=== PATIENT | male | born 1930 | race Caucasian/White ===

== ENCOUNTER 2017-12-23 06:49 | Day surgery (SDC) | payer MEDICARE ==
[~2017-12-23] VITALS: Ht 170.2 cm; Wt 84.3 kg
[2017-12-23] VITALS (14 sets, daily range): BP systolic 104–140; BP diastolic 51–85
[~2017-12-23 06:49] MED LIST: ADV50250 IH; CITA-278 PO; CRANBERRY PO; HYT5T PO; NORCO10T PO; OMEP-84 PO; ONDA8TAB6 PO; OS CAL PO; VITAMIN D 3 PO
[2017-12-23] MEDS ORDERED: nitroGLYCERIN 0.4mg SUBLingual tab SL PRN (07:20)
[2017-12-23] MEDS ORDERED: diphenhydrAMINE 25mg capsule PO PRN (07:20)
[2017-12-23] MEDS ORDERED: normal saline 1000ml 1,000 ML IV SCH ×2 (07:20→10:20)
[2017-12-23] MEDS ORDERED: LORazepam 0.5 MG tablet PO PRN (07:20)
[2017-12-23] MEDS ORDERED: METO-539 PO (07:38)
[2017-12-23] MEDS ORDERED: CLON0.5T23 PO (07:38)
[2017-12-23] MEDS ORDERED: FLO0.4C PO (07:38)
[2017-12-23] MEDS ORDERED: NABU500T2 PO (07:38)
[2017-12-23] MEDS ORDERED: TIOT4MIS3 IH (07:43)
[2017-12-23] MEDS ORDERED: MULT-1085 PO (07:43)
[2017-12-23] MEDS ORDERED: LACT1CAP73 PO (07:43)
[2017-12-23] MEDS ORDERED: TYL650S PO (07:43)
[2017-12-23 08:23] LABS: BASOPHILS % (AUTO) 0.6 % (0-1); EOSINOPHILS # (AUTO) 0.3 X10'3 (0-0.9); EOSINOPHILS % (AUTO) 3.8 % (0-6); LYMPHOCYTES # (AUTO) 1.9 X10'3 (1.1-4.8); LYMPHOCYTES % (AUTO) 24.9 % (21-51); MEAN CORPUSCULAR HEMOGLOBIN 30.6 PG (27.0-31.0); MEAN CORPUSCULAR VOLUME 92.5 FL (78-98); MEAN PLATELET VOLUME 8.8 FL (7.4-10.4); MONOCYTES # (AUTO) 0.6 X10'3 (0-0.9); MONOCYTES % (AUTO) 7.8 % (2-12); NEUTROPHILS # (AUTO) 4.7 X10'3 (1.8-7.7); NEUTROPHILS % (AUTO) 62.9 % (42-75); PRE OP HEMATOCRIT 43.1 % (42.0-52.0); PRE OP HEMOGLOBIN 14.2 g/dL (14.0-17.9); PRE OP PLATELET COUNT 221 X10'3 (140-440); RED BLOOD COUNT 4.66 X10'6 (4.70-6.10); RED CELL DISTRIBUTION WIDTH 14.5 % (11.5-14.5)
[2017-12-23 08:27] LABS: PARTIAL THROMBOPLASTIN TIME 26 SECONDS (22-32); PROTHROMBIN TIME 10.3 SECONDS (9.0-12.0)
[2017-12-23 08:36] LABS: ALBUMIN 3.4 G/DL (3.4-5.0); ANION GAP 8 (8-16); BLOOD UREA NITROGEN 15 MG/DL (7-18); BUN/CREATININE RATIO 13.9 (5.4-32.0); CALCIUM 9.1 MG/DL (8.5-10.1); CHLORIDE 106 MMOL/L (99-107); CREATININE 1.08 MG/DL (0.60-1.10); GLUCOSE 118 MG/DL (70-104); POTASSIUM 4.6 MMOL/L (3.5-5.1); SODIUM 142 MMOL/L (135-145); eGFR 65 ML/MIN
[2017-12-23] MEDS ORDERED: LIDOcaine 1% (10mg/ml)w/preservative injection 20ml MDV ONE (08:52)
[2017-12-23] MEDS ORDERED: iohexol 350MG/ML 100ml bottle IV ONE (08:52)
[2017-12-23] MEDS ORDERED: iohexol 350 MG/ML 50ML vial IV ONE ×2 (08:52→09:36)
[2017-12-23] MEDS ORDERED: fentaNYL/PF 50MCG/1 ML 2ML syringe ONE (08:52)
[2017-12-23] MEDS ORDERED: midazolam 2 mg/2 ml injection ONE (08:52)
[2017-12-23] MEDS ORDERED: HYDROcodone/acetaminophen 5mg/325mg tablet PO PRN (10:20)
[2017-12-23] MEDS ORDERED: OXAZEpam 15mg capsule PO PRN (10:20)
[2017-12-23] MEDS ORDERED: ondansetron/PF 4mg/2ml inj IV PRN (10:20)
[2017-12-23] MEDS ORDERED: HYDROcodone/acetaminophen 10/325mg tab PO PRN (10:20)
[2017-12-23] MEDS ORDERED: proCHLORperazine 10 MG/2 ml inj IV PRN (10:20)
== END 2017-12-23 16:55 | disposition home or self-care (01) ==
LOC: SSTAY O 06:49
PROVIDERS: ATTEND Internal Medicine Cardiovascular Disease
DX: I25.10 Atherosclerotic heart disease of native coronary artery without angina pectoris (principal); I10 Essential (primary) hypertension; E78.5 Hyperlipidemia, unspecified; I73.9 Peripheral vascular disease, unspecified; Z87.891 Personal history of nicotine dependence; Z85.01 Personal history of malignant neoplasm of esophagus; Z92.21 Personal history of antineoplastic chemotherapy; Z92.3 Personal history of irradiation; Z79.899 Other long term (current) drug therapy; Z98.890 Other specified postprocedural states
CPT/HCPCS: 36415; 71046; 80048; 83880; 85025; 85610; 85730; 93005; 93458; 93567; 99152; 99153; A6257; J1644; J2001; J2250; J3010; J7030; Q0163; Q9967; A4620; C1760; C1769